=== PATIENT | female | born 1970 | race Caucasian/White ===

== ENCOUNTER 2017-07-29 16:18 | Emergency (ER) | payer OTHER ==
[~2017-07-29] VITALS: Ht 172.7 cm; Wt 61.2 kg
[~2017-07-29 16:18] MED LIST: TRAM50TA2 PO
--- NOTE | 2017-07-29 17:40 | NUR ---
ERMD AT THE BEDSIDE FOR EVAL AND EXAM.
--- NOTE | 2017-07-29 17:51 | NUR ---
Patient discharged to home in stable conditon. Written and verbal after care instructions given. Patient verbalizes understanding of instructions.
== END 2017-07-29 17:52 | disposition home or self-care (01) ==
LOC: ER 16:18
DX: L03.031 Cellulitis of right toe (principal)
CPT/HCPCS: 99283; A4663